=== PATIENT | male | born 1955 | race Caucasian/White ===

== ENCOUNTER 2018-05-13 07:51 | Day surgery (SDC) | payer OTHER ==
[2018-05-07 14:26] VITALS: BMI 20.5
[2018-05-13] MEDS ORDERED: PROPOFOL 20 ML ONE ×2 (07:53)
[2018-05-13] MEDS ORDERED: LIDOCAINE HCL/PF 2% SDV 5ML VIAL ONE (07:54)
[2018-05-13 10:26] VITALS: TEMP 98.2
[2018-05-13 10:30] VITALS: BP 116/72; PULSE 56
== END 2018-05-13 10:32 | disposition home or self-care (01) ==
LOC: FASU-ENDO 07:51
PROVIDERS: ATTEND Internal Medicine Gastroenterology
PROC: 0DJD8ZZ Inspection of Lower Intestinal Tract, Via Natural or Artificial Opening Endoscopic (ICD-10-PCS; principal; 2018-05-13 09:38)
DX: Z12.11 Encounter for screening for malignant neoplasm of colon (principal); Z80.0 Family history of malignant neoplasm of digestive organs